=== PATIENT | male | born 1995 | race Caucasian/White ===

== ENCOUNTER 2021-01-25 10:07 | Outpatient (REF) | payer MEDICAID, SELFPAY | END 2021-01-25 10:08 | disposition home or self-care (01) | LOC: HO.LAB 10:07 | PROVIDERS: Visit Provider Internal Medicine | DX: Z20.822 Contact with and (suspected) exposure to COVID-19 (principal) | CPT/HCPCS: 36415; C9803; U0003; U0005 ==

== ENCOUNTER 2021-02-21 08:31 | Outpatient (REF) | payer MEDICAID, SELFPAY ==
[2021-02-21 09:12] LABS: COVID-19 Test Negative (Negative); IDNOW Serial# 55D5AD1C
== END 2021-02-21 08:32 | disposition home or self-care (01) ==
LOC: HO.LAB 08:31
PROVIDERS: Visit Provider Internal Medicine
DX: Z20.822 Contact with and (suspected) exposure to COVID-19 (principal)
CPT/HCPCS: 36415; 87635; C9803

== ENCOUNTER 2023-10-30 08:44 | Emergency (ER) | payer MEDICAID, SELFPAY ==
--- NOTE | ~2023-10-30 | XR_ITS ---
EXAMINATION: XR CHEST CLINICAL INFORMATION: Substernal pain with inspiration. COMPARISON: None available. TECHNIQUE: 2 views of the chest were obtained. FINDINGS: No significant abnormality is noted involving the heart, lungs, mediastinum, bony thorax or soft tissues. XR/XR chest 2V IMPRESSION: Unremarkable chest examination.
[2023-10-30 08:49] VITALS: BP 121/78; PULSE 87; RESP 18; TEMP 36.6; O2SAT 99; BMI 32.8
--- NOTE | 2023-10-30 08:55 | ECG_ITS ---
Test Reason : chest pain Blood Pressure : / mmHG Vent. Rate : 083 BPM Atrial Rate : 083 BPM P-R Int : 106 ms QRS Dur : 082 ms QT Int : 342 ms P-R-T Axes : 063 027 032 degrees QTc Int : 401 ms Sinus rhythm with short KS Otherwise normal ECG No previous ECGs available Referred By: Generic ED Physician Electronically Signed By:ANTONY SANTOYO MD
[2023-10-30 10:10] LABS: MANUAL DIFF FLAG NO
[2023-10-30 10:12] LABS: Basophils Percent Auto 0.5 % (0-2); Eosinophils Percent Auto 0.1 % (0-4); Hematocrit 51.3 % (42.0-52.0); Hemoglobin 17.9 g/dl (14.0-18.0); Imm Gran Abs Auto 0.03 X10*3/uL (0.00-0.03); Imm Gran Pct Auto 0.4 % (0.0-0.4); Lymphocytes Absolute Auto 0.5 X10*3/uL (1.2-4.9); Lymphocytes Percent Auto 5.6 % (20-40); Mean Corpuscular HGB Conc 34.9 g/dl (31.0-36.0); Mean Corpuscular Hemoglobin 29.9 pg (27.0-33.0); Mean Corpuscular Volume 85.8 fL (80.0-98.0); Mean Platelet Volume 9.6 fL (9.4-12.4); Monocytes Absolute Auto 0.7 X10*3/uL (0.1-1.2); Monocytes Percent Auto 7.8 % (2-11); Neutrophils Absolute Auto 7.3 x10*3/uL (2.0-8.3); Neutrophils Percent Auto 85.6 % (45-73); Platelet Count 232 X10*3/uL (160-400); Red Blood Count 5.98 X10*6/uL (4.60-5.80); Red Cell Distribution Width 12.6 % (11.0-16.0); White Blood Count 8.6 X10*3/uL (4.8-10.8)
[2023-10-30 10:26] LABS: Anion Gap 14 (12-20); Blood Urea Nitrogen 9 mg/dL (9-16); Carbon Dioxide 27 mmol/L (22-29); Chloride 106 mmol/L (96-108); Creatinine Clr Calc Pharmacy 121.3; Estimated Glomerular Filt Rate > 60; Glucose Random 118 mg/dL (60-115); Potassium 4.4 mmol/L (3.3-5.1); Sodium 143 mmol/L (135-145)
[2023-10-30 10:48] LABS: Troponin-I High Sensitivity < 2.7 ng/L (<3.5-35.0)
[2023-10-30 12:16] VITALS: BP 121/70; PULSE 75; RESP 20; TEMP 36.7; O2SAT 98
--- NOTE | 2023-10-30 12:59 | ED.CHESTPAIN ---
HPI - Chest Pain General Chief Complaint: Chest Pain Stated Complaint: Chest pain, vomiting Time Seen by Provider: 10/30/23 12:47 Source: patient Mode of arrival: ambulatory Limitations: no limitations History of Present Illness HPI narrative: 28 year old male with no significant pmhx presents to the ED today for evaluation of intermittent substernal/ epigastric pain x12 hours. Reports eating dinner around 1830 last night prior to going to work. Upon arriving to work, began to feel nauseous. Endorses one episode of vomiting this morning. Admits to burning sensation to epigastric region. Has not attempted to eat since dinner yesterday. Reports trying an OTC liquid medication without resolution of symptoms. Denies nausea at present. Only complaint in ED is substernal burning sensation. No radiation. Denies fever, chills, dizziness, vision changes, palpitations, SOB, LE swelling or pain. Denies recent travel or long car rides. Last BM yesterday. Normal. Related Data Previous Rx's Medication Instructions Recorded famotidine 10 mg tablet 10 mg PO BID PRN acid reflux 14 10/30/23 days #28 tabs Allergies Allergy/AdvReac Type Severity Reaction Status Date / Time No Known Allergies Allergy Verified 10/30/23 08:48 Review of Systems Review of Systems: Constitutional: No fever, chills, fatigue, night sweats, weight changes ENT/Mouth: No ear pain, hearing loss, nasal congestion, sinus pain, rhinorrhea, sore throat Eyes: No eye pain, swelling, redness, vision changes, discharge Cardio: +chest pain, No palpitations, PATEL, orthopnea, peripheral edema Pulm: No SOB, cough, sputum, wheezing, dyspnea, hemoptysis GI: No nausea, vomiting, hematemesis, abdominal pain, diarrhea, constipation, hematochezia, melena : No irregular bleeding, dysuria, frequency, urgency, hesitancy, hematuria, flank pain, urinary flow changes, urinary incontinence or retention MSK: No back pain, neck pain, joint pain, myalgias Skin: No lesions, rashes Neuro: No weakness, numbness, paresthesias, LOC, dizziness, headache All other systems reviewed and are negative. [facility] Past Medical History Attestation statement: The following information was validated with the patient. Source: old records reviewed and nursing notes reviewed Social History Social History Advance Directives: No Advance Directives Information Provided: No Physical Exam Vital Signs: Vital Signs: Last Vital Signs Temp 98.0 F 10/30/23 12:16 Pulse 75 10/30/23 16:15 Resp 20 10/30/23 12:16 BP 113/38 L 10/30/23 16:15 Pulse Ox 99 10/30/23 16:15 O2 Del Method Room Air 10/30/23 16:15 BMI result Body Mass Index 32.8 Vital signs stable Const: General: cooperative, healthy appearing, comfortable, no acute distress, alert and awake Orientation/consciousness: patient oriented x3 Limitations: no limitations HEENT: Head: Yes normal to inspection Eyes: General: appearance normal, both eyes and all related structures Conjunctivae: conjunctivae normal Sclerae: sclerae normal Pupils: Equal, round and reactive pupils present Neck: Neck: Yes normal visual inspection, Yes full ROM and Yes no lymphadenopathy Chest: Chest palpation & inspection: normal inspection of the chest and normal palpation of entire chest wall Resp: Effort & Inspection: normal respiratory effort Auscultation: clear to auscultation bilaterally Cardio: Jugular venous distension: no JVD Rate: regular rate Rhythm: regular rhythm Peripheral pulses: radial pulses present GI: Other: + abdomen soft, nondistended, nontender to palpation, no rebound tenderness or guarding, no hepatosplenomegaly, normoactive bs x4. Inspection: Yes normal to inspection Skin: General skin exam: no rashes or lesions noted Neuro: General: patient oriented x3, gait normal and moves all extremities Cranial nerves: Yes Equal, round and reactive pupils present Extrem: General: Yes normal to inspection Course Course Course Narrative: CBC without leukocytosis or anemia. Chemistry without acute electrolyte abnormality requiring intervention. Lipase wnl > no concern for pancreatitis. Troponin undetectable. EKG showing sinus rhythm with short IA, QT 342, QTC 401, no acute ischemic changes or st elevations. Patient tested negative for rsv, covid, and flu 1526-- On re-evaluation, patient states that his symptoms have completely resolved with GI cocktail and IVF. Patient's symptoms consistent with acid reflux. he is tolerating crackers in ED. will send patient home with pepcid. advised him to follow up with pcp. states he does not have one. will provide him with a referral. Patient has remained stable throughout ED visit today. Discussed strict return precautions. All questions answered at this time. Patient is agreeable with disposition and stable for discharge. Medications Administered Discontinued Medications Generic Name Dose Route Start Last Admin Trade Name Yoseph PRN Reason Stop Dose Admin Al Hydroxide/Mg Hydroxide 30 ml 10/30/23 13:19 10/30/23 13:51 Magnesium Hydrox/Alum Hydrox 30 Ml Oral.Susp PO 10/30/23 13:20 30 ml ONCE ONE Administration Belladonna Alkaloids/Phenobarbital 10 ml 10/30/23 13:19 10/30/23 13:51 Phenobarb/Hyoscy/Atropine/Scop 10 Ml Elixir PO 10/30/23 13:20 10 ml ONCE ONE Administration Sodium Chloride 1,000 mls @ 999 mls/hr 10/30/23 14:15 10/30/23 15:40 Ns IV 10/30/23 15:15 Infused .Q1H1M [facility] Ondansetron HCl 4 mg 10/30/23 13:19 10/30/23 13:50 Ondansetron Odt 4 Mg Tab.Rapdis TRANSLINGU 10/30/23 13:20 4 mg ONCE ONE Administration Medical Decision Making Medical Decision Making [facility] Narrative: 28 year old male with no significant pmhx presents to the ED today for evaluation of intermittent substernal/ epigastric pain x12 hours. VSS, afebrile, normotensive. Patient nontoxic appearing and in NAD. RRR. No JVD. Lungs CTA bilaterally. Abdomen soft, ND/NT, no rebound tenderness or guarding. Normoactive bs x4. Clinical concern for arrythmia, electrolyte derangement, viral syndrome, gastroenteritis, GERD, gastritis, pancreatitis, PUD. Unlikely ACS, appendicitis, cholecystitis, diverticulitis, diverticulosis, SBO, ischemic bowel. Plan for labs, trop, ekg, cxr, gi cocktail, and re-evaluation. Differential Diagnosis Differential Diagnoses: The differential diagnosis associated with the presentation includes as above Admission/Observation Not indcated. Lab Data [facility] Lab Attestation statement: I reviewed the patient's lab results. as above 10/30/23 10:01 10/30/23 10:01 Labs: Lab Results 10/30/23 10/30/23 Range/Units 10:01 13:34 WBC 8.6 (4.8-10.8) X10*3/uL RBC 5.98 H (4.60-5.80) X10*6/uL Hgb 17.9 (14.0-18.0) g/dl Hct 51.3 (42.0-52.0) % MCV 85.8 (80.0-98.0) fL MCH 29.9 (27.0-33.0) pg MCHC 34.9 (31.0-36.0) g/dl RDW 12.6 (11.0-16.0) % Plt Count 232 (160-400) X10*3/uL MPV 9.6 (9.4-12.4) fL Immature Gran % (Auto) 0.4 (0.0-0.4) % Neut % (Auto) 85.6 H (45-73) % Lymph % (Auto) 5.6 L (20-40) % [place] % (Auto) 7.8 (2-11) % Eos % (Auto) 0.1 (0-4) % Baso % (Auto) 0.5 (0-2) % Lymph # (Auto) 0.5 L (1.2-4.9) X10*3/uL [place] # (Auto) 0.7 (0.1-1.2) X10*3/uL Eos # (Auto) 0.0 (0.0-0.4) X10*3/uL Baso # (Auto) 0.0 (0.0-0.2) X10*3/uL Abs Immat Gran (auto) 0.03 (0.00-0.03) X10*3/uL Absolute Neuts (auto) 7.3 (2.0-8.3) x10*3/uL Absolute Nucleated RBC 0.000 (0.0-0.012) X10*3/uL Nucleated RBC % (auto) 0.0 (0.0-0.2) /100WBC Sodium 143 (135-145) mmol/L Potassium 4.4 (3.3-5.1) mmol/L Chloride 106 (96-108) mmol/L Carbon Dioxide 27 (22-29) mmol/L Anion Gap 14 (12-20) BUN 9 (9-16) mg/dL Creatinine 0.86 (0.5-1.4) mg/dL Estim Creat Clear Calc 121.3 Estimated GFR > 60 Random Glucose 118 H (60-115) mg/dL Calcium 10.0 (8.4-10.2) mg/dL Troponin I High Sens < 2.7 (<3.5-35.0) ng/L Lipase 11 (8-78) U/L Influenza Type A (PCR) NEGATIVE (Negative) Influenza Type B (PCR) NEGATIVE (Negative) RSV RNA Qual (PCR) NEGATIVE (Negative) SARS-CoV-2 RNA (RT-PCR) NEGATIVE (Negative) Independent Interpretation I performed an independent interpretation of an: EKG and Plain X-Ray Interpretation: EKG showing CXR with normal cardiac silhouette, agree with radiologist's interpretation. Radiology Impression Discussion of test interpretation with radiology: I have reviewed the radiologist's reading. Radiologist Impression: XR chest 2V IMPRESSION: Unremarkable chest examination. External Record Review External record reviewed: Inpatient record Prescription Management I considered prescription management with: Pain Medication and Other (antihistamine/ antacid) Critical Care Time Critical Care Time Critical Care Time: No Discharge Plan Discharge Clinical Impression: Acid reflux disease Patient Disposition: Home, Self-Care Instructions: Diet for Stomach Ulcers and Gastritis (ED), Gastroesophageal Reflux Disease (ED) Additional Instructions: Your labs today were normal. Your chest x-ray was normal. Your EKG was normal. Your symptoms improved today with medications. You likely have acid reflux. Pepcid has been sent to your pharmacy to help with reflux. You may take this twice daily as needed. If symptoms persist for more than 2-4 weeks, please follow-up with your primary care provider. If you do not have a PCP, a referral has been provided to you. You may call them to make an appointment. They will not call you. You may also follow-up with a GI specialist. A referral has been provided to you. You may call them to schedule an appointment. They will not call you. If symptoms persist or worsen please return to the emergency department. The case of an emergency call 911. Prescriptions: New famotidine 10 mg tablet 10 mg PO BID PRN (Reason: acid reflux) 14 Days Qty: 28 0RF Referrals: [facility] [Provider Group] [facility] [Provider Group]
[2023-10-30] MEDS: Ondansetron ODT 4 MG TAB.RAPDIS TRANSLINGU (13:50)
[2023-10-30] MEDS: PHENobarb/Hyoscy/Atropine/Scop 10 ML ELIXIR PO (13:51)
[2023-10-30] MEDS: Magnesium Hydrox/Alum Hydrox 30 ML ORAL.SUSP PO (13:51)
[2023-10-30 14:23] LABS: Influenza A PCR NEGATIVE (Negative); Influenza B PCR NEGATIVE (Negative); Resp Syncy Virus RNA Qual PCR NEGATIVE (Negative); SARS COV2 PCR INHOUSE NEGATIVE (Negative)
[2023-10-30] MEDS: 0.9 % Sodium Chloride 1,000 ML 999 ML IV (14:41)
[2023-10-30 16:15] VITALS: BP 113/38; PULSE 75; O2SAT 99
[2023-10-30 17:15] LABS: Lipase 11 U/L (8-78)
[2023-11-06 06:43] LABS: Lipoprotein A 67 nmol/L (<75)
== END 2023-10-30 18:00 | disposition home or self-care (01) ==
PROVIDERS: Physician Assistant Medical; Emergency Provider Emergency Medicine Emergency Medical Services
DX: K21.9 Gastro-esophageal reflux disease without esophagitis (principal); R07.89 Other chest pain; R11.2 Nausea with vomiting, unspecified; Z20.822 Contact with and (suspected) exposure to COVID-19; Z20.828 Contact with and (suspected) exposure to other viral communicable diseases; Z79.899 Other long term (current) drug therapy
CPT/HCPCS: 0241U; 36415; 71046; 80048; 83690; 83695; 84484; 85025; 93005; 96360; 99284

== ENCOUNTER → 2023-10-30 08:55 | Outpatient (BNV) | payer MEDICAID, SELFPAY | PROVIDERS: Emergency Provider Emergency Medicine Emergency Medical Services; Visit Provider Internal Medicine Cardiovascular Disease | DX: R07.9 Chest pain, unspecified (principal) | CPT/HCPCS: 93010 ==